=== PATIENT | female | born 1955 | race Caucasian/White ===

== ENCOUNTER 2017-01-24 09:44 | Emergency (ER) | payer OTHER ==
[2017-01-24 10:31] VITALS: BP 142/67
--- NOTE | 2017-01-24 11:34 | RAD ---
HISTORY: Right foot trauma COMPARISONS: None VIEWS: 2, Frontal and lateral views of the right ankle FINDINGS: BONE DENSITY: Normal. BONES: There is no displaced fracture. 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 SOFT TISSUES: Unremarkable. OTHER FINDINGS: None. IMPRESSION: MILD DEGENERATIVE CHANGES. NO ACUTE OSSEOUS INJURY. IF SYMPTOMS PERSIST, RECOMMEND REPEAT IMAGING.
--- NOTE | 2017-01-24 11:35 | RAD ---
HISTORY: Right wrist trauma COMPARISONS: Right hand August 14, 2014 VIEWS: 3, Frontal, lateral, and oblique views of the right wrist FINDINGS: BONE DENSITY: Normal. BONES: There is no displaced fracture. JOINTS: There is osteoarthritis of the first CMC and MCP joints and of the visualized interphalangeal joints ALIGNMENT: There is no dislocation. SOFT TISSUES: Unremarkable. OTHER FINDINGS: None. IMPRESSION: OSTEOARTHRITIS. NO ACUTE OSSEOUS INJURY. IF SYMPTOMS PERSIST, RECOMMEND REPEAT IMAGING.
--- NOTE | 2017-01-24 11:37 | RAD ---
HISTORY: Right foot trauma COMPARISONS: None VIEWS: 3, Frontal, lateral, and oblique views of the right foot FINDINGS: BONE DENSITY: Normal. BONES: There is no displaced fracture. There are small calcaneal enthesophytes JOINTS: There is mild osteoarthritis of the first MTP joint and interphalangeal joints ALIGNMENT: There is no dislocation. SOFT TISSUES: Unremarkable. OTHER FINDINGS: None. IMPRESSION: MILD DEGENERATIVE CHANGES. NO ACUTE OSSEOUS INJURY. IF SYMPTOMS PERSIST, RECOMMEND REPEAT IMAGING.
--- NOTE | 2017-01-24 13:12 | UC ---
Minor Trauma HPI - HPI Summary HPI Summary: FALL YESTERDAY IN [place], FLIPFLOP CAUGHT ON FLOOR. FELL ONTO RIGHT SIDE. NO LOC , NO HEAD INJURY, NO NECK PAIN. NO BRUISING. AFTER INJURY HAS HAD CONTINUED PAIN IN RIGHT FOOT AND RIGHT WRIST. PREVIOUS HISTORY OF ANKLE INJURY/SURGERY. - History of Current Complaint Chief Complaint: UCLowerExtremity Stated Complaint: RIGHT FOOT/HAND INJURY (fall) Time Seen by Provider: 01/24/17 10:53 Hx Obtained From: Patient Onset/Duration: Lasting Days Onset Of Pain: Post Accident Severity Initially: Moderate Severity Currently: Moderate Pain Intensity: 6 Pain Scale Used: 0-10 Numeric Mechanism Of Injury: Fall From A Standing Position, Twisted Aggravating Factor(s): Ambulation, Movement Alleviating Factor(s): Nothing - Risk Factors Penetrating Injury Risk Factors: Negative - Allergies/Home Medications Allergies/Adverse Reactions: Allergies Allergy/AdvReac Type Severity Reaction Status Date / Time SONALI Inhibitors Allergy Intermediate Coughing Verified 01/24/17 10:32 Tetracycline AdvReac Mild See Comment Verified 01/24/17 10:32 Metals Allergy Intermediate Rash Uncoded 08/14/14 15:11 Home Medications: Home Medications Vitamin B Complex CAP* [B Complex CAP*] 1 cap PO DAILY 01/24/17 [History Confirmed 01/24/17] PMH/Surg Hx/FS Hx/Imm Hx Previously Healthy: Yes Endocrine History Of: Reports: Diabetes - Type II, Thyroid Disease - hypo Cardiovascular History Of: Reports: Hypertension - Surgical History Surgical History: Yes Surgery Procedure, Year, and Place: LUMBAR LAMINECTOMY;. RIGHT ANKEL SURGERY X 3;. - Family History Known Family History: Negative: Other - NO JOINT LAXITY OR CONNECTIVE TISSUE DISORDERS - Social History Occupation: Employed Full-time Lives: With Family Alcohol Use: Occasionally Substance Use Type: None Smoking Status (MU): Never Smoked Tobacco Review of Systems Constitutional: Negative Skin: Negative Eyes: Negative ENT: Negative Respiratory: Negative Cardiovascular: Negative Gastrointestinal: Negative Genitourinary: Negative Motor: Negative Neurovascular: Negative Musculoskeletal: Arthralgia - RIGHT ANKLE, RIGHT FOOT, Edema, Myalgia - RIGHT ANKLE, RIGHT FOOT Neurological: Negative Psychological: Negative All Other Systems Reviewed And Are Negative: Yes Physical Exam Triage Information Reviewed: Yes Appearance: Well-Appearing, Well-Nourished, Pain Distress - MILD, Obese Vital Signs: Initial Vital Signs Temp 98 F 01/24/17 10:26 Pulse 64 01/24/17 10:26 Resp 16 01/24/17 10:26 BP 142/67 01/24/17 10:26 Pulse Ox 99 01/24/17 10:26 Vital Signs Reviewed: Yes Eye Exam: Normal ENT Exam: Normal ENT: Positive: Normal ENT inspection, Hearing grossly normal, Pharynx normal, TMs normal Dental Exam: Normal Neck exam: Normal Neck: Positive: Supple, Nontender, No Lymphadenopathy Respiratory Exam: Normal Respiratory: Positive: Chest non-tender, Lungs clear, Normal breath sounds, No respiratory distress, No accessory muscle use Cardiovascular Exam: Normal Cardiovascular: Positive: RRR, No Murmur, Pulses Normal, Brisk Capillary Refill Abdominal Exam: Normal Musculoskeletal: Positive: Strength Intact, ROM Intact, No Edema, Other: - TENDERNESS RIGHT WRIST. FIFTH METATARSAL RIGHT FOOT Neurological Exam: Normal Psychological Exam: Normal Skin Exam: Normal Minor Trauma Course/Dx - Differential Dx/Diagnosis Differential Diagnosis/HQI/PQRI: Fracture, Sprain, Strain Provider Diagnoses: RIGHT WRIST SPRAIN;. RIGHT FOOT SPRAIN Discharge - Discharge Plan Condition: Stable Disposition: HOME Patient Education Materials: Foot Sprain (ED), Wrist Sprain (ED) Referrals: [facility] [Outside] Choco Fox MD [Medical Doctor] - Desi Plaza MD [Primary Care Provider] -
== END 2017-01-24 12:02 | disposition home or self-care (01) ==
LOC: UCCORT 09:44
DX: S63.501A Unspecified sprain of right wrist, initial encounter (principal); S93.601A Unspecified sprain of right foot, initial encounter; W01.0XXA Fall on same level from slipping, tripping and stumbling without subsequent striking against object, initial encounter; Y93.9 Activity, unspecified; Y92.59 Other trade areas as the place of occurrence of the external cause; E11.8 Type 2 diabetes mellitus with unspecified complications; E03.9 Hypothyroidism, unspecified; I10 Essential (primary) hypertension; E66.9 Obesity, unspecified
CPT/HCPCS: 99213; G0463